=== PATIENT | male | born 1945 | race Hispanic/Latino ===

== ENCOUNTER 2021-09-12 13:23 | Emergency (ER) | payer MEDICARE ==
[~2021-09-12] VITALS: Ht 177.8 cm; Wt 96.6 kg
[2021-09-12] MEDS ORDERED: TERAZOSIN HCL2 MG PO (14:00)
[2021-09-12] MEDS ORDERED: FINASTERIDE5 MG PO (14:00)
[2021-09-12] MEDS ORDERED: ATORVASTATIN CA20 MG PO (14:00)
[2021-09-12] MEDS ORDERED: LISINOPRIL10 MG PO (14:00)
== END 2021-09-12 16:15 | disposition home or self-care (01) ==
LOC: ER 13:58
DX: M79.661 Pain in right lower leg (principal); I82.811 Embolism and thrombosis of superficial veins of right lower extremity; I86.8 Varicose veins of other specified sites; I10 Essential (primary) hypertension; E78.5 Hyperlipidemia, unspecified
CPT/HCPCS: 93971; 99283